=== PATIENT | male | born 1995 | race Caucasian/White ===

== ENCOUNTER → 2020-07-12 | Outpatient (CLI) | payer OTHER | END | disposition home or self-care (01) | LOC: RADPV 12:07 | PROVIDERS: ATTEND Internal Medicine | DX: R76.11 Nonspecific reaction to tuberculin skin test without active tuberculosis (principal) | CPT/HCPCS: 71045 ==

== ENCOUNTER 2022-05-18 14:50 | Emergency (ER) | payer OTHER ==
[~2022-05-18] VITALS: Ht 167.6 cm; Wt 140.9 kg
[2022-05-18 14:53] VITALS: BP 133/86
[2022-05-18] MEDS ORDERED: PROP20TA18 PO (14:56)
[2022-05-18 15:09] LABS: COVID AG,FIA SOURCE NASOPHARYNGEAL
[2022-05-18] MEDS ORDERED: KETOROLAC TROMETHAMINE 30 MG/ML VIAL IM ONE (15:30)
[2022-05-18 15:35] LABS: RAPID GROUP A STREP NEGATIVE (NEGATIVE)
[2022-05-18 15:39] LABS: INFLUENZA TYPE A NEGATIVE FOR TYPE A (NEGATIVE); INFLUENZA TYPE B NEGATIVE FOR TYPE B (NEGATIVE)
[2022-05-18] MEDS ORDERED: AMOX TR/POT CLAV 875 MG/125 MG TABLET PO ONE (15:45)
[2022-05-18] MEDS ORDERED: AMOX1TAB16 PO (15:45)
[2022-05-18] MEDS ORDERED: IBUP-1492 PO (15:48)
== END 2022-05-18 17:08 | disposition home or self-care (01) ==
LOC: EMS 15:13
DX: J03.90 Acute tonsillitis, unspecified (principal); F41.9 Anxiety disorder, unspecified; Z90.49 Acquired absence of other specified parts of digestive tract; Z20.822 Contact with and (suspected) exposure to COVID-19
CPT/HCPCS: 99283; 87426; 87430; 87804; 96372; J1885; C9803

== ENCOUNTER 2024-10-23 20:23 | Emergency (ER) | payer OTHER ==
[~2024-10-23] VITALS: Ht 167.6 cm; Wt 130.0 kg
[~2024-10-23 20:23] MED LIST: AMOX-457 PO; IBUP-1492 PO; PROP20TA18 PO
[2024-10-23] MEDS: ONDANSETRON HCL 4 MG/2 ML VIAL IVP ONE (20:58)
[2024-10-23] MEDS: RINGERS SOLUTION,LACTATED 1,000 ML IV ONE (20:58)
[2024-10-23 20:59] VITALS: TEMP 98.9
[2024-10-23] MEDS: MORPHINE SULFATE 4 MG/ML SYRINGE IVP ONE (20:59)
[2024-10-23 21:06] LABS: PLATELET COUNT (AUTO) 341 K/uL (150-450); RED BLOOD CELL COUNT(AUTO) 5.84 MIL/uL (4.50-5.90); RED CELL DISTRIBUTION WIDTH 13.5 % (11.5-14.5); WHITE BLOOD COUNT (AUTO) 13.5 K/uL (4.5-11.0)
[2024-10-23] MEDS: LORazepam 2 MG/ML VIAL IVP ONE (21:38)
[2024-10-23 21:44] LABS: CALCIUM, TOTAL 8.4 mg/dL (8.8-10.5); CREATININE 0.67 mg/dL (0.60-1.30); GLOMERULAR FILTR. RATE CALC > 60 mL/min (>60); GLUCOSE,RANDOM 230 mg/dL (70-110); SODIUM SERUM 137 mmol/L (136-145); UREA NITROGEN, BLOOD 10 mg/dL (7-18)
[2024-10-23 21:50] LABS: ASPARTATE AMINOTRANSFERASE 14.0 U/L (15-37); TOTAL PROTEIN, SERUM 7.2 g/dL (6.4-8.2)
[2024-10-23] MEDS: METOCLOPRAMIDE HCL 5 MG/ML 2 ML VIAL IVP ONE (22:32)
[2024-10-23] MEDS: MORPHINE SULFATE 10 MG/ML VIAL IVP ONE (23:32)
[2024-10-24] MEDS: RINGERS SOLUTION,LACTATED 1,000 ML IV ONE (04:00)
[2024-10-24] MEDS ORDERED: ONDA-104 PO (06:01)
[2024-10-24 06:35] VITALS: BP 132/77; PULSE 98; RESP 16; O2SAT 97
== END 2024-10-24 06:37 | disposition home or self-care (01) ==
LOC: EMS 20:25
DX: K52.9 Noninfective gastroenteritis and colitis, unspecified (principal); F41.9 Anxiety disorder, unspecified; Z90.49 Acquired absence of other specified parts of digestive tract; Z79.899 Other long term (current) drug therapy
CPT/HCPCS: 99284; 96374; 96375; 96361 ×2; 80048; 80076; 83690; 85025; 36415; 96376; J1171; J2060; J2765; J2270 ×2; J2405; J7120 ×2; J7030